=== PATIENT | female | born 1980 | race Caucasian/White ===

== ENCOUNTER → 2019-07-09 12:55 | Outpatient (CLI) | payer OTHER, SELFPAY ==
[2019-07-09 12:45] VITALS: BMI 29.5
--- NOTE | 2019-07-09 12:58 | RAD_ITS ---
STUDY: X-RAY CHEST REASON FOR EXAM: Female, 39 years old. Cough, recent pneumonia TECHNIQUE: PA and lateral views of the chest. COMPARISON: None. FINDINGS: The lungs are clear and expanded. There is no demonstrated pleural abnormality. Normal size heart. Normal mediastinum and sourav. Normal visualized pulmonary arteries. Normal visualized aortic arch and descending thoracic aorta. There is a dextroscoliosis of the thoracic spine. Normal visualized ribs, clavicles, and shoulders. There is no demonstrated abnormality of the visualized soft tissue structures of the upper abdomen. RAD/Chest PA and Lateral IMPRESSION: Normal x-ray examination of the chest. Electronically Signed: Aldo Arce MD at 13:12 EDT Tel , Service support ,
== END ==
PROVIDERS: PCP Family Medicine; Referring Provider Physician Assistant; Visit Provider Physician Assistant
DX: R05 Cough (principal)
CPT/HCPCS: 71046

== ENCOUNTER 2021-03-28 15:09 | Emergency (ER) | payer OTHER, SELFPAY ==
[2020-01-28 12:03] VITALS: BMI 29.5
[2021-03-28 15:10] VITALS: BP 122/71; PULSE 89; RESP 16; TEMP 36.8; O2SAT 100; BMI 28.3
--- NOTE | 2021-03-28 15:48 | EX.ED.VIS.HA ---
[email or web address] History of Present Illness Chief Complaint: Headache Informant: patient and family Onset/Context/Timing Onset: Days Context: Sudden Timing: Continuous and Waxes and wanes Quality -Headache: Positive for Throbbing Location: Bilateral Current Severity: Severe Maximum Severity: Severe Worsened by: Light, movement Relieved by: Nothing Associated Symptoms/Injury Associated Symptoms: Positive for Fever, Nausea, Vomiting, Sore Throat, Sinus Pressure and Photophobia; Negative for Numbness, Tingling, Preceding Aura, Visual Changes, Blurred Vision and Visual Loss Injury - QUINTEROS: - (There is no history of trauma. Patient was diagnosed with Covid last week.) Narrative Narrative: Patient is a 40-year-old woman who reports flulike symptoms that started approximate 1 week ago. The day after onset of her flulike symptoms she had a Covid test that was positive. She now presents with bilateral migratory throbbing pain that is worse with loud sounds and light. She does report temperature greater than 100. She does report nasal symptoms. She does report sore throat. She complains of neck pain but not neck stiffness. She does have a cough which is nonproductive. She does report GI symptoms. She does report myalgias and arthralgias. She denies urologic symptoms. She has not had much to eat and her urine output has been diminished. Prior similar symptoms: Yes Recent Illness/Hospitalization: Yes [facility] Medical History (Updated 03/28/21 @ 16:[address] Will Cantor MD) Anemia Hay fever Severe frontal headaches Home Medications pseudoephedrine-ibuprofen 30 mg-200 mg capsule cap PO cap 11/12/18 [History Last Taken Unknown] azithromycin 250 mg tablet 250 mg PO QDAY #12 tab 01/28/20 [Rx Last Taken Unknown] Allergy/AdvReac Type Severity Reaction Status Date / Time Penicillins Allergy Severe Rash Verified 01/28/20 12:01 Family History Other Diabetes Surgical History History of delivery History of cholecystectomy Social History (Updated 03/28/21 @ 15:[address] Will Cantor MD) household members: spouse and children Smoking Status: Never smoker alcohol intake: current alcohol intake frequency: a few times a week Alcohol type: beer substance use type: does not use ROS ROS ED Constitutional Constitutional ED: Reports chills, fever(s) and sweats Eyes Eyes: Reports change in vision; Denies blurry vision or diplopia ENT ENT ED: Reports rhinorrhea and sore throat; Denies ear pain Cardiovascular Cardiovascular: Reports palpitations; Denies chest pain, orthopnea or paroxysmal nocturnal dyspnea Respiratory/Chest Respiratory/Chest: Reports cough and dyspnea; Denies dyspnea on exertion, orthopnea, paroxysmal nocturnal dyspnea or sputum Gastrointestinal Gastrointestinal: Reports abdominal pain, diarrhea and nausea; Denies melena Genitourinary Genitourinary ED: Denies dysuria, hematuria or urinary frequency Musculoskeletal Musculoskeletal: Reports arthralgias, back pain, myalgias and neck pain Integumentary Denies rash Neurologic Neurologic: Reports headache(s) and weakness; Denies paresthesias Endocrine Endocrinology: Denies polydipsia, polyphagia or polyuria Hematologic/Lymphatic Hematologic/Lymphatic: Denies easy bleeding or easy bruising EXAM Physical Exam Const Vital Signs: 03/28/21 15:10 Temperature 98.2 F Temperature Source Temporal Pulse Rate 89 Respiratory Rate 16 Blood Pressure 122/71 H Blood Pressure Mean 88 Pulse Ox 100 Oxygen Delivery Method Room Air Positive well nourished and well developed General Appearance ED: well developed and other Patient does not appear well. There was little eye contact during history and physical examination. ; Negative for cyanotic, diaphoretic or pallor HEENT Reports normocephalic, TM's clear and dry mucous membranes atraumatic; Negative for vesicular rash Face and Sinus: Negative for sinus tenderness Tympanic Membrane ED: Yes TM's clear Mouth ED: Yes dry mucous membranes Mouth: dry mucous membranes Eyes PERRL and EOMs intact bilaterally General Eye ED: Negative for pale conjunctiva or scleral icterus Neck no lymphadenopathy, supple, no meningeal signs and no JVD Resp normal respiratory effort and clear to auscultation bilaterally Cardio regular rate, regular rhythm, S1 normal heart sound, S2 normal heart sound and no murmurs GI non-tender and non-distended Auscultation: hyperactive bowel sounds Palpation: soft and guarding Back/Spine no CVA tenderness Cervical Spine: Negative for cervical spine tenderness Thoracic Spine / Upper Back: Negative for thoracic spinal tenderness Extremity normal to inspection, full ROM and normal capillary refill Neuro oriented x3 and CN's II-XII intact bilaterally [place] Coma Scale: document GCS findings Spontaneous Abnormal Flexion Oriented 12 Sensorium / Orientation: awake Coordination / Balance: [id number] test normal Speech: speech normal Motor Exam: strength 5/5 throughout Comatose: other There is no sensory deficit noted. Psych mental status grossly normal Skin General Skin Exam: Negative for jaundice or pallor Lesions: no lesions Rashes: no rashes Nails: normal MDM MDM MDM Narrative Medical decision making narrative: Patient presents with headache, mild arthralgias and fever due to Covid. Clinically she is dehydrated. Since neuro exam is nonfocal will hydrate and treat her headache with Benadryl, Reglan and Toradol. Since there is no meningeal findings lumbar puncture was not performed. Treatment and Re-Evaluation Comments:: Patient was reassessed at 1615. She reports feeling much better. Her headache is improved. Plan is to discharge to home. Discharge Plan Triage Chief Complaint: Headache ED Provider: Will Cantor Dx/Rx/DC Orders Clinical Impression: COVID-19, Viral cephalgia, Acute dehydration Instructions: Coronavirus Disease 2019 (COVID-19): Caring for Yourself or Others, ED Viral Syndrome (Adult) Prescriptions: No Action Advil Cold and Sinus 30-200 mg capsule PO RF: 0 azithromycin 250 mg tablet 250 mg PO QDAY Qty: 12 RF: 0 Primary Care Provider: Nehemiah Mc Referrals: Nehemiah Mc MD [Primary Care Provider] - As Needed Disposition Disposition: Home, self care
[2021-03-28] MEDS: Metoclopramide 10 MG/2 ML Vial IV (16:10)
[2021-03-28] MEDS: DiphenhydrAMINE 50 MG/ML Syringe 25 MG IV (16:10)
[2021-03-28] MEDS: 0.9% Normal Saline 1,000 ML 999 ML IV (16:10)
[2021-03-28] MEDS: Ketorolac 15 MG/ML Vial IV (16:15)
[2021-03-28 17:25] VITALS: BP 131/80; PULSE 90; RESP 16; O2SAT 99
== END 2021-03-28 18:32 | disposition home or self-care (01) ==
PROVIDERS: Emergency Provider Emergency Medicine; PCP Family Medicine
DX: U07.1 COVID-19 (principal); M54.2 Cervicalgia; E86.0 Dehydration
CPT/HCPCS: 96361; 96374; 96375; 99282; J7030; A4216